=== PATIENT | male | born 1955 | race Caucasian/White ===

== ENCOUNTER → 2019-09-14 | Outpatient (CLI) | payer BC, OTHER | END | disposition home or self-care (01) | LOC: CFH 12:14 | PROVIDERS: ATTEND Family Medicine | DX: K76.0 Fatty (change of) liver, not elsewhere classified (principal) | CPT/HCPCS: 76705 ==

== ENCOUNTER 2020-02-01 08:48 | Day surgery (SDC) | payer BC, OTHER ==
[2020-01-31 11:55] LABS: ALANINE AMINOTRANSFERASE 54 U/L (12-78); ANION GAP 7 mmol/L (5-15); CALCIUM 8.7 mg/dL (8.5-10.1); CHLORIDE 107 mmol/L (98-107); CREATININE 1.13 mg/dL (0.7-1.3)
[2020-01-31 11:57] LABS: ALKALINE PHOSPHATASE 59 U/L (45-117); BILIRUBIN,TOTAL 0.8 mg/dL (0.2-1.0); TOTAL PROTEIN 7.5 g/dL (6.4-8.2)
[~2020-02-01] VITALS: Ht 182.9 cm; Wt 92.6 kg
[~2020-02-01 08:48] MED LIST: BACITRACIN OINT 500U/GM, 15 GM ONE; EPINEPHRINE 1 MG/ML, 1ML ONE; LIDOCAINE/PF 1%, 30ML ONE; METO-93 PO; MONT10TA6 PO; OMEP10SU2 PO; OXYMETAZOLINE NASAL SPRAY 0.05%,30ML ONE
[2020-02-01 09:38] VITALS: BP 146/81
[2020-02-01] MEDS ORDERED: MIDAZOLAM 1 MG/ML, 2ML ONE (09:52)
[2020-02-01] MEDS ORDERED: FENTANYL PF 100 MCG/2ML ONE ×2 (09:52→12:10)
[2020-02-01] MEDS ORDERED: LACTATED RINGERS 1,000 ML IV SCH (10:00)
[2020-02-01] MEDS ORDERED: CHLORHEXIDINE 15 ML UDC MM ONE (10:00)
[2020-02-01] MEDS ORDERED: EPINEPHRINE TOPICAL SOLN 1 MG/ML, 30ML ONE (10:26)
[2020-02-01] MEDS ORDERED: FLUORESCEIN SODIUM 500 MG/5 ML ONE (10:26)
[2020-02-01] MEDS ORDERED: ROCURONIUM 10MG/ML,5ML ONE (11:12)
[2020-02-01] MEDS ORDERED: CEFAZOLIN 1,000 MG ONE (11:12)
[2020-02-01] MEDS ORDERED: NEOSTIGMINE 1 MG/ML, 10ML ONE (11:12)
[2020-02-01] MEDS ORDERED: GLYCOPYRROLATE 0.2MG/1ML, 5ML ONE (11:12)
[2020-02-01] MEDS ORDERED: PROPOFOL 10 MG/ML, 20ML ONE (11:12)
[2020-02-01] MEDS ORDERED: DEXAMETHASONE 4 MG/ML, 1ML ONE (11:12)
[2020-02-01] MEDS ORDERED: SUCCINYLCHOLINE 20 MG/ML, 10ML ONE (11:12)
[2020-02-01] MEDS ORDERED: ONDANSETRON 2MG/ML, 2ML ONE (11:12)
[2020-02-01] MEDS ORDERED: MEPERIDINE/PF 25MG/0.5ML IVPush PRN (11:30)
[2020-02-01] MEDS ORDERED: PROMETHAZINE 25 MG/ML, 1ML IVPush PRN (11:30)
[2020-02-01] MEDS ORDERED: HYDROmorphone 1 MG/ML, 1ML INJ IVPush PRN (11:30)
[2020-02-01] MEDS ORDERED: OXYcodone 5 MG/5 ML ORAL.SOL UDC PO PRN (11:30)
[2020-02-01] MEDS ORDERED: HYDROcodone/APAP 7.5-325MG/15ML UDC PO PRN (11:30)
[2020-02-01] MEDS: FENTANYL PF 100 MCG/2ML IV PRN ×2 (12:07→12:19)
[2020-02-01] MEDS ORDERED: hydrALAzine 20 MG/ML, 1ML ONE (12:10)
[2020-02-01] MEDS ORDERED: OXYcodone 5 MG/5 ML ORAL.SOL UDC ONE (12:11)
[2020-02-01] MEDS ORDERED: HYDROmorphone 1 MG/ML, 1ML INJ ONE (12:34)
== END 2020-02-01 14:40 | disposition home or self-care (01) ==
LOC: OUT 08:48
PROVIDERS: ATTEND Otolaryngology
DX: J34.1 Cyst and mucocele of nose and nasal sinus (principal); J32.2 Chronic ethmoidal sinusitis; J32.3 Chronic sphenoidal sinusitis; J34.89 Other specified disorders of nose and nasal sinuses; J44.9 Chronic obstructive pulmonary disease, unspecified; I10 Essential (primary) hypertension; K21.9 Gastro-esophageal reflux disease without esophagitis; M26.622 Arthralgia of left temporomandibular joint; Z20.828 Contact with and (suspected) exposure to other viral communicable diseases; Z79.899 Other long term (current) drug therapy; Z88.5 Allergy status to narcotic agent
CPT/HCPCS: 31259; 36415; 61782; 80053; 82962; 87070; 87075; 87102; 87205; 87635; 88304; 88311; 88341; 88342; 93005; J0171; J0330; J0690; J1100; J1170; J2250; J2405; J2704; J2710; J3010; J7120